=== PATIENT | male | born 1940 | race Caucasian/White ===

== ENCOUNTER 2021-10-21 13:39 | Emergency (ER) | payer MEDICARE ==
[~2021-10-21] VITALS: Ht 172.7 cm; Wt 75.0 kg
[2021-10-21] MEDS ORDERED: OFLOXACIN0.3 % OS ×4 (14:08→14:20)
[2021-10-21 14:20] VITALS: BP 145/78
== END 2021-10-21 14:20 | disposition home or self-care (01) ==
LOC: ED 13:39
DX: H57.12 Ocular pain, left eye (principal); Z86.73 Personal history of transient ischemic attack (TIA), and cerebral infarction without residual deficits; Z95.0 Presence of cardiac pacemaker